=== PATIENT | female | born 1980 | race Two or more races ===

== ENCOUNTER → 2018-09-09 | Outpatient (CLI) | payer OTHER ==
--- NOTE | 2018-09-10 09:06 | Diagnostic Imaging Report ---
#[id number] - [id number] #BILATERAL FIRST EVER DIGITAL DIAGNOSTIC MAMMOGRAM WITH CAD: 09/09/2018 No prior exams were available for comparison. Current study contains 6 films. The tissue of both breasts is extremely dense, which lowers the sensitivity of mammography. Current study was also evaluated with a Computer Aided Detection (CAD) system. No significant masses, calcifications, or other findings are seen in either breast. IMPRESSION: NEGATIVE There is no mammographic evidence of malignancy. A 3 year screening mammogram is recommended. The patient will be notified by letter of the results. Scottie archer/samantha:09/09/2018 16:04:04 Campaign Coordinator: Alyce COTA(R)(M), [facility] letter sent: Normal Exam Mammogram BI-RADS: 1 Negative
== END ==
LOC: MAMMO 12:21
PROVIDERS: ATTEND Internal Medicine
DX: R92.2 Inconclusive mammogram (principal); D24.1 Benign neoplasm of right breast
CPT/HCPCS: 77066